=== PATIENT | male | born 1970 | race Caucasian/White ===

== ENCOUNTER → 2017-02-12 | Outpatient (CLI) | payer MEDICAID ==
[~2017-02-12] MED LIST: AMOX-362 PO; CEFU500T50 PO; FLU60VIA21 IM ONLY; GUAI-545 PO; HYDR-4225 PO; HYDR-4309 PO; HYDR100C9 PO; HYDR25CA83 PO; IBUP-1671 PO; IBUP600T22 PO; LEVE-14 PO; LEVE100034 PO; LEVE100047 PO; LEVO-85 PO; LEVO500T83 PO; LORA-1456 PO; MOMR ENA; PNEI IJ; PROP10TA58 PO; PROP20TA56 PO; TAMS0.4C25 PO; VERA120T72 PO; VERA180C10 PO; VERA240T12 PO; VERA360C6 PO
== END ==
LOC: LAB 08:41
PROVIDERS: ATTEND Internal Medicine Hematology & Oncology
DX: E83.119 Hemochromatosis, unspecified (principal)
CPT/HCPCS: 36415; 82040; 82247; 82310; 82374; 82435; 82565; 82728; 82947; 83550; 84075; 84132; 84155; 84295; 84450; 84460; 84520; 85027; 99195

== ENCOUNTER → 2017-02-18 | Outpatient (CLI) | payer MEDICAID | LOC: LAB 08:52 | PROVIDERS: ATTEND Internal Medicine Hematology & Oncology | DX: E83.119 Hemochromatosis, unspecified (principal) | CPT/HCPCS: 36415; 82040; 82247; 82310; 82374; 82435; 82565; 82728; 82947; 83550; 84075; 84132; 84155; 84295; 84450; 84460; 84520; 85027 ==

== ENCOUNTER → 2017-02-27 | Outpatient (CLI) | payer MEDICAID | LOC: LAB 08:01 | PROVIDERS: ATTEND Internal Medicine Hematology | DX: E83.119 Hemochromatosis, unspecified (principal) | CPT/HCPCS: 36415; 82040; 82247; 82310; 82374; 82435; 82565; 82728; 82947; 83550; 84075; 84132; 84155; 84295; 84450; 84460; 84520; 85027; 99195 ==

== ENCOUNTER → 2017-03-06 | Outpatient (CLI) | payer MEDICAID | LOC: LAB 07:54 | PROVIDERS: ATTEND Internal Medicine Hematology & Oncology | DX: E83.119 Hemochromatosis, unspecified (principal) | CPT/HCPCS: 36415; 82040; 82247; 82310; 82374; 82435; 82565; 82728; 82947; 83550; 84075; 84132; 84155; 84295; 84450; 84460; 84520; 85027 ==

== ENCOUNTER → 2017-03-11 | Outpatient (CLI) | payer MEDICAID | LOC: LAB 08:23 | PROVIDERS: ATTEND Internal Medicine Hematology & Oncology | DX: E83.119 Hemochromatosis, unspecified (principal) | CPT/HCPCS: 99195 ==

== ENCOUNTER → 2017-03-25 | Outpatient (CLI) | payer MEDICAID ==
[~2017-03-25] MED LIST changes: +FLU30SYR8 IM ONLY
== END ==
LOC: LAB 08:00
PROVIDERS: ATTEND Internal Medicine Hematology
DX: E83.119 Hemochromatosis, unspecified (principal)
CPT/HCPCS: 36415; 82040; 82247; 82310; 82374; 82435; 82565; 82728; 82947; 83540; 83550; 84075; 84132; 84155; 84295; 84450; 84460; 84520; 85027; 99195

== ENCOUNTER → 2017-03-26 | Outpatient (CLI) | payer MEDICAID ==
--- NOTE | 2017-03-26 09:39 | RADIOLOGY IMAGING REPORT ---
FACILITY: [facility] - [place] PATIENT NAME: Wilber Carrasco : 1970 MR: [id number] V: [id number] EXAM DATE: ORDERING PHYSICIAN: RACHELE WALLACE TECHNOLOGIST: [place] [facility] [place] Patient: Wilber Carrasco : 1970 Visit/Account:[id number] Date of Sevice: 03/26/2017 EXAMINATION: Limited right upper quadrant ultrasound 03/26/2017 4:23 AM HISTORY: Chronic liver disease. COMPARISON STUDIES: Renal ultrasound 06/15/2015, ultrasound of the liver to 416 FINDINGS: Gallbladder: no stones or sludge. Liver: Borderline prominent at 17 cm. Increased echogenicity with diminished penetration. No focal mass. No marisela cirrhotic features. Common duct: 3 mm Pancreas: Visualized portions are normal. Tail was not well seen due to bowel gas. Right kidney: negative Upper abdominal aorta and IVC: negative Ascites: none IMPRESSION: 1. Echogenic liver which can be seen with simple fatty infiltration although also more profound hepa tocellular disease. No clear cirrhotic features. 2. Otherwise unremarkable study apart from poor visualization of the pancreatic tail. Report Dictated By: Pérez Edouard MD at 03/26/2017 9:31 AM Report E-Signed By: Pérez Edouard MD at 03/26/2017 9:34 AM WSN:LANCE
== END ==
LOC: US 00:56
PROVIDERS: ATTEND Emergency Medicine
DX: K76.0 Fatty (change of) liver, not elsewhere classified (principal)
CPT/HCPCS: 76705

== ENCOUNTER → 2017-04-02 | Outpatient (CLI) | payer MEDICAID | LOC: LAB 08:03 | PROVIDERS: ATTEND Internal Medicine Hematology | DX: E83.110 Hereditary hemochromatosis (principal) | CPT/HCPCS: 36415; 82040; 82247; 82310; 82374; 82435; 82565; 82728; 82947; 83540; 83550; 84075; 84132; 84155; 84295; 84450; 84460; 84520; 85027; 99195 ==

== ENCOUNTER → 2017-05-28 | Outpatient (CLI) | payer MEDICAID ==
[~2017-05-28] MED LIST changes: +LOR1 PO
[2017-05-28 09:28] LABS: INR 1.13
== END ==
LOC: CT 01:08
PROVIDERS: ATTEND Emergency Medicine
DX: Z01.818 Encounter for other preprocedural examination (principal); E83.110 Hereditary hemochromatosis
CPT/HCPCS: 36415; 85610; 85730

== ENCOUNTER 2017-06-24 08:07 | Outpatient (RCR) | payer MEDICAID ==
[2017-04-04 09:45] VITALS: BP 117/80
--- NOTE | 2017-04-04 18:20 | ONCOLOGY FOLLOW UP NOTE ---
EVENT DATE: April 04, 2017 DIAGNOSES 1. Hereditary hemochromatosis with double heterozygous state for C282Y mutation and H63D mutation. 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 4. Possible liver cirrhosis. 5. Left upper extremity tremors. CHIEF COMPLAINT The patient is here today for followup of his hereditary hemochromatosis. HEMATOLOGY HISTORY The patient is a 47-year-old male who underwent neurology evaluation by Dr. Ann, and he was diagnosed with Call-Wray Syndrome with tremors of the left upper extremity and weakness of the left lower extremity, and non- epileptic seizures. He saw also an regional tanker truck driver for problem with the right eye, and he lost nearly 98% of vision in the right eye, as per patient. The patient was found to have iron overload, and he had genetic testing for hemochromatosis, which revealed double heterozygous state for C282Y and H63D mutations. The patient had started phlebotomy sessions every week. His iron studies on March 16, 2015 revealed ferritin of 811, serum iron 282, TIBC 304, iron saturation 92.8%. He has also evidence of liver cirrhosis, and his serum protein electrophoresis was normal. His thrombocytopenia is attributed to his liver cirrhosis, and his current platelet count on March 10, 2015 was 98,000. HISTORY OF PRESENT ILLNESS Patient is here today for followup of his hereditary hemochromatosis. He is doing fine currently. He has generalized joint aches. His tremor of the left upper extremity is getting better with dose modification of his medication after he was followed by his neurologist. Other than that he is really doing very well. CURRENT MEDICATIONS 1. Hydroxyzine 25 mg at bedtime. 2. Propranolol 10 mg b.i.d. 3. Levetiracetam 1000 mg daily. 4. Verapamil 360 mg daily. 5. Mucinex D one tablet q.12h. 6. Nasonex 17 gm spray, 1-2 sprays each nostril p.r.n. ALLERGIES No known drug allergies. PAST MEDICAL HISTORY 1. Call-Wray syndrome. 2. Left upper extremity tremors. 3. Possible liver cirrhosis. 4. Blindness, right eye. PAST SURGICAL HISTORY Hernia repair as . FAMILY HISTORY The patient has strong family history of Parkinsonism and strokes. His father had history of skin cancer, prostate cancer and colon cancer. SOCIAL HISTORY The patient is single with no children. He is unemployed, not on disability. He quit smoking in 1996 and quit alcohol in 1998. Denies any abuse of illicit drugs. REVIEW OF SYSTEMS CONSTITUTIONAL: No appetite or weight change. No fever, chills or sweating. No recent infection. HEENT: Ears: No tinnitus or hearing problem. Nose: The patient has occasional nasal bleed. Throat: No sore throat or mouth ulcers. Eyes: No diplopia or visual changes. RESPIRATORY: He has shortness of breath. CARDIOVASCULAR: No chest pain, orthopnea, or paroxysmal nocturnal dyspnea (PND) . No edema. No palpitations. GASTROINTESTINAL: No nausea or vomiting. No diarrhea. He has constipation. No change in bowel movements. No heartburn or swallowing difficulties. No abdominal pain. No jaundice. No hematemesis, melena or rectal bleeding. GENITOURINARY: No hematuria or dysuria. MUSCULOSKELETAL: Patient has generalized joint pains. NEUROLOGICAL: His tremors of the left upper extremity are getting better with dose modification of his treatment. HEMATOLOGIC/LYMPHATIC: He is weak, tired, and fatigued. SKIN: No skin rash or lumps. PSYCHIATRIC: No anxiety or depression PHYSICAL EXAMINATION GENERAL: Looks stable. Well-developed, well-nourished, and in no acute distress. VITAL SIGNS: Blood pressure 117/80, pulse 66 per minute, respirations 16 per minute, temperature 98. Pulse ox 90% on room air. HEENT: Head: Atraumatic. No sinus tenderness to palpation. Eyes: No icterus or conjunctivitis. Mouth and throat: No oral thrush or mucositis. NECK: Supple. No cervical or supraclavicular lymphadenopathy. LUNGS: Clear to auscultation and percussion bilaterally. HEART: Regular rate and rhythm. No gallops, murmurs, clicks or rubs. ABDOMEN: Soft and lax. No tenderness. No hepatosplenomegaly. No masses. EXTREMITIES: No cyanosis, clubbing or edema. LYMPHATICS: No peripheral lymphadenopathy. NEUROLOGICAL: The patient has tremors of the left upper extremity which look slower, less violent than before. PSYCHIATRIC: Mood and affect appear normal. SKIN: No skin rash, bruise or purpuric eruption. DIAGNOSTIC DATA CBC showed a white count of 5.9, hemoglobin 15.6, hematocrit 43.8, platelets 100 ,000. Chem panel totally normal, except AST 111, ALT 142. Serum iron 163, TIBC 312, iron saturation 52.2% and ferritin 295. ASSESSMENT 1. Hereditary hemochromatosis with double heterozygous state for C282Y mutation and H63D mutation. The patient has had multiple phlebotomies in the past. Current ferritin is 295 and saturation 52.2%, and the patient has phlebotomy every other week. I am planning to proceed with phlebotomy weekly for five times, and I will see him in six weeks from now with CBC, iron studies with ferritin. My target for phlebotomy is to keep ferritin less than 100 and iron saturation less than 60%. 2. Call-Wray syndrome. Patient is followed by neurologist, with improvement of the tremors of the left upper extremity with his current dose modification. 3. Right eye blindness. 4. Possible liver cirrhosis. CT-guided biopsy of the liver could not be done because of the tremors. 5. Left upper extremity tremors, most probably due to his neurologic disorder. He is getting better with increasing the dose of his medication directed by his neurologist. PLAN 1. Phlebotomize 500 mL of blood every week as long as hematocrit is more than 30%. 2. Patient to return in six weeks with CBC, iron studies with ferritin and chem panel. 3. Patient is to contact us for any new concerns or complaints. [facility]
[2017-04-08 09:01] VITALS: BP 130/80
[2017-04-15 08:34] VITALS: BP 118/83
[2017-04-15 09:07] VITALS: BP 124/81
[2017-04-22 08:37] VITALS: BP 149/113
[2017-05-01 09:40] VITALS: BP 165/133
[2017-05-01 10:13] VITALS: BP 120/71
[2017-05-06 08:53] VITALS: BP 107/66
[2017-05-06 09:11] VITALS: BP 83/74
[2017-05-06 09:26] VITALS: BP 99/60
[2017-05-15 08:43] VITALS: BP 144/86
[2017-05-15 08:51] LABS: PLATELET COUNT, AUTOMATED 98 K/uL (150-450)
[2017-05-17 08:47] VITALS: BP 101/73
--- NOTE | 2017-05-17 16:15 | ONCOLOGY FOLLOW UP NOTE ---
EVENT DATE: May 17, 2017 DIAGNOSES 1. Hereditary hemochromatosis with double heterozygous state for C282Y mutation and H63D mutation. 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 4. Possible liver cirrhosis. 5. Left upper extremity tremors. CHIEF COMPLAINT The patient is here today for followup of his hereditary hemochromatosis. HEMATOLOGY HISTORY The patient is a 47-year-old male who underwent neurology evaluation by Dr. Ann, and he was diagnosed with Call-Wray Syndrome with tremors of the left upper extremity and weakness of the left lower extremity, and non- epileptic seizures. He saw also an bow maker custom for problem with the right eye, and he lost nearly 98% of vision in the right eye, as per patient. The patient was found to have iron overload, and he had genetic testing for hemochromatosis, which revealed double heterozygous state for C282Y and H63D mutations. The patient had started phlebotomy sessions every week. His iron studies on March 16, 2015 revealed ferritin of 811, serum iron 282, TIBC 304, iron saturation 92.8%. He has also evidence of liver cirrhosis, and his serum protein electrophoresis was normal. His thrombocytopenia is attributed to his liver cirrhosis, and his current platelet count on March 10, 2015 was 98,000. HISTORY OF PRESENT ILLNESS Patient is here today for followup of his hereditary hemochromatosis. He is doing fine currently. He has some dry cough occasionally. He has achy pain all over his joints. His tremors in the left upper extremity are getting better. CURRENT MEDICATIONS 1. Hydroxyzine 25 mg at bedtime. 2. Propranolol 10 mg b.i.d. 3. Levetiracetam 1000 mg daily. 4. Verapamil 360 mg daily. 5. Mucinex D one tablet q.12h. 6. Nasonex 17 gm spray, 1-2 sprays each nostril p.r.n. ALLERGIES No known drug allergies. PAST MEDICAL HISTORY 1. Call-Wray syndrome. 2. Left upper extremity tremors. 3. Possible liver cirrhosis. 4. Blindness, right eye. PAST SURGICAL HISTORY Hernia repair as infant. FAMILY HISTORY The patient has strong family history of Parkinsonism and strokes. His father had history of skin cancer, prostate cancer and colon cancer. SOCIAL HISTORY The patient is single with no children. He is unemployed, not on disability. He quit smoking in 1996 and quit alcohol in 1998. Denies any abuse of illicit drugs. REVIEW OF SYSTEMS CONSTITUTIONAL: No appetite or weight change. No fever, chills or sweating. No recent infection. HEENT: Ears: No tinnitus or hearing problem. Nose: The patient has occasional nasal bleed. Throat: No sore throat or mouth ulcers. Eyes: No diplopia or visual changes. RESPIRATORY: He has dry cough. CARDIOVASCULAR: No chest pain, orthopnea, or paroxysmal nocturnal dyspnea (PND) . No edema. No palpitations. GASTROINTESTINAL: No nausea or vomiting. No diarrhea. He has constipation. No change in bowel movements. No heartburn or swallowing difficulties. No abdominal pain. No jaundice. No hematemesis, melena or rectal bleeding. GENITOURINARY: No hematuria or dysuria. MUSCULOSKELETAL: He has achiness in his joints. NEUROLOGICAL: His tremors in the left upper extremity are getting better lately. HEMATOLOGIC/LYMPHATIC: He is weak, tired, and fatigued. SKIN: No skin rash or lumps. PSYCHIATRIC: No anxiety or depression PHYSICAL EXAMINATION GENERAL: Looks stable. Well-developed, well-nourished, and in no acute distress. VITAL SIGNS: Blood pressure 101/73, pulse 57 per minute, respirations 18 per minute, temperature 98.6. Pulse ox 90% on room air. HEENT: Head: Atraumatic. No sinus tenderness to palpation. Eyes: No icterus or conjunctivitis. Mouth and throat: No oral thrush or mucositis. NECK: Supple. No cervical or supraclavicular lymphadenopathy. LUNGS: Clear to auscultation and percussion bilaterally. HEART: Regular rate and rhythm. No gallops, murmurs, clicks or rubs. ABDOMEN: Soft and lax. No tenderness. No hepatosplenomegaly. No masses. EXTREMITIES: No cyanosis, clubbing or edema. LYMPHATICS: No peripheral lymphadenopathy. NEUROLOGICAL: Tremors of the left upper extremity are noted and they are better than before with his current treatment. PSYCHIATRIC: Mood and affect appear normal. SKIN: No skin rash, bruise or purpuric eruption. DIAGNOSTIC DATA CBC showed a white count of 5.6, hemoglobin 14.3, hematocrit 40.2, platelets 98, 000. Iron studies showed serum iron 88, TIBC 339, iron saturation 26% and ferritin 90. ASSESSMENT 1. Hereditary hemochromatosis with double heterozygous state for C282Y mutation and H63D mutation. Patient had multiple phlebotomies in the past. His current ferritin is 90, down from 295, and iron saturation is 26%, down from 52.2%. I am planning to start his maintenance phlebotomy. I will see him in three months from now with CBC, iron studies with ferritin and chem panel, and I will repeat his CBC and iron studies in six weeks. My target for phlebotomy if ferritin is above 100 and/or iron saturation more than 60% as long as his hematocrit is above 30%. 2. Call-Wray syndrome. Patient is followed by neurologist, with improvement of the tremors in the left upper extremity with his current modification. 3. Right eye blindness. 4. Possible liver cirrhosis. CT-guided biopsy of the liver could not be done in the past because of his tremors. 5. Left upper extremity tremors, most probably due to his neurologic disorder. They are getting better lately. PLAN 1. Phlebotomize 500 mL of blood as long as his hematocrit is above 30% and his ferritin above 100 and/or iron saturation more than 60%. 2. CBC, iron studies with ferritin to be checked every six weeks. 3. Patient to return in three months with CBC, chem panel, iron studies with ferritin. 4. Patient is to contact us for any new concerns or complaints. [facility]
[2017-06-24 08:20] LABS: PLATELET COUNT, AUTOMATED 95 K/uL (150-450)
[2017-06-24 08:22] VITALS: BP 107/60
[2017-06-24 10:31] VITALS: BP 129/101
[2017-06-28] MEDS ORDERED: HYDR-4225 PO (11:08)
== END 2017-07-02 ==
LOC: SPU 08:07
PROVIDERS: ATTEND Internal Medicine Hematology
DX: E83.110 Hereditary hemochromatosis (principal); I67.841 Reversible cerebrovascular vasoconstriction syndrome; R25.1 Tremor, unspecified; H54.61 Unqualified visual loss, right eye, normal vision left eye; R53.1 Weakness; R53.83 Other fatigue; R06.02 Shortness of breath; K59.00 Constipation, unspecified; Z79.899 Other long term (current) drug therapy
CPT/HCPCS: 82728; 83540; 83550; 85014; 85025; 85027; 99195; G0463; 99212

== ENCOUNTER → 2017-09-19 | Outpatient (CLI) | payer MEDICARE, MEDICAID | LOC: LAB 08:57 | PROVIDERS: ATTEND Emergency Medicine | DX: E78.5 Hyperlipidemia, unspecified (principal); R74.8 Abnormal levels of other serum enzymes | CPT/HCPCS: 36415; 82465; 83718; 84478 ==

== ENCOUNTER 2017-11-11 08:10 | Outpatient (RCR) | payer MEDICARE, MEDICAID ==
[2017-08-19 09:09] LABS: PLATELET COUNT, AUTOMATED 86 K/uL (150-450)
[2017-08-19 10:20] VITALS: BP 115/74
[2017-08-22 08:17] VITALS: BP 120/77
--- NOTE | 2017-08-22 09:57 | Oncology Progress Note ---
History of Present Illness Evaluation Evaluation Date: Aug 22, 2017 Evaluation Time: 08:41 Accompanied by Accompanied by: self Last seen by : Bentley 05/23/17 Chief Complaint Chief Complaint F/u management of Hereditary hemochromatosis. Oncology History Oncology History HEMATOLOGY HISTORY Patient is a 47-year-old male who underwent neurology evaluation by Dr. Ann, and he was diagnosed with Call-Wray Syndrome with tremors of the left upper extremity and weakness of the left lower extremity, and non-epileptic seizures. - He saw also an fermentation manager for problem with the right eye, and he lost nearly 98% of vision in the right eye, as per patient. - The patient was found to have iron overload, and he had genetic testing for hemochromatosis, which revealed double heterozygous state for C282Y and H63D mutations. - The patient had started phlebotomy sessions every week. His iron studies on March 16, 2015 revealed ferritin of 811, serum iron 282, TIBC 304, iron saturation 92.8%. - He has also evidence of liver cirrhosis, and his serum protein electrophoresis was normal. His thrombocytopenia is attributed to his liver cirrhosis, and his current platelet count on March 10, 2015 was 98,000. Treatment Treatment Therapeutic Phlebotomy Q2-4 weeks. - Phlebotomize 500 mL of blood for a hematocrit above 30% ; ferritin above 50- 100 and/or iron saturation more than 60% HPI HPI Mr. Danilo Merino is a legally blind obese 47-year-old male who has Hereditary Hemochromatosis with double heterozygous state for C282Y mutation, and H63D mutation Dx; 02/2015. The patient had started phlebotomy sessions every week. His iron studies on March 16, 2015 revealed ferritin of 811, serum iron 282, TIBC 304, iron saturation 92.8%. He has also evidence of liver cirrhosis, and his serum protein electrophoresis was normal. Significant PMH of liver cirrhosis attributed thrombocytopenia (plt 98K in 02/20150 ,Call-Wray Syndrome with tremors of the left upper extremity and weakness of the left lower extremity, coupled with non-epileptic seizures. Patient presents to the cancer center today by himself for follow-up on his disease management . Platelet count today is 96; hemoglobin 16.1; hematocrit 45.7; total iron saturation percentage is 101.5; ferritin 202; Iron 269; TIBC 265; CMP within normal limits. except AST 80; ALT 105. Patient reports being in his usual state of health. He denies any nausea vomiting, diarrhea, shortness of breath, cardiac type chest pain , no fevers, or sore throat, no night sweats. Besides weakness, fatigue, unsteady gait and tremors on his bilateral lower extremities and upper extremities for which he wears a brace and the lower extremities.He reports no changes in appetite, no changes in bowel or bladder pattern. Living Conditions Lives by himself, has home health aid, help assistance, 4 times per Day. Diagnostic Studies Result Diagram: 08/19/1748 08/19/17 0848 PMH Patient History: FH: cancer FATHER (Skin cancer), Age:74 FH: cerebral aneurysm MOTHER (aneurysm), FH: diabetes mellitus MOTHER (aneurysm), sister FH: heart attack FH: hypertension FATHER (Skin cancer), Age:74 MOTHER (aneurysm), sister FH: stroke FATHER (Skin cancer), Age:74 Social/Occupational History Social History: Social History This is a 47 Yr old White male, he is S Single and has [] Children Hx Smoking: Yes (SMOKED 5 YRS <1 PPD) Smoking Status: Former Smoker Exposure to Second Hand Smoke?: Yes Allergies & Medications Allergies: Coded Allergies: coconut oil (Verified Allergy, Severe, AIRWAY OBSTRUCTION, 08/22/15) tomato (Verified Allergy, Severe, AIRWAY OBSTRUCTION, 08/22/15) Home Meds Active Scripts Propranolol Hcl (PROPRANOLOL HCL) 20 Mg Tablet, 1 TAB PO BID, #180 TAB 3 Refills Prov:RACHELE WALLACE MD 07/25/17 Hydroxyzine Hcl (HYDROXYZINE HCL) 25 Mg Tablet, 25 MG PO BID, #180 TAB 3 Refills Prov:RACHELE WALLACE MD 06/28/17 Levetiracetam (LEVETIRACETAM) 1,000 Mg Tablet, 1.5 TAB PO BID, #90 TAB 0 Refills Prov:RACHELE WALLACE MD 05/03/17 Verapamil HCl (Verapamil Sr) 180 Mg Cap24h.pel, 1 TAB PO BID, #60 TAB 11 Refills Prov:RACHELE WALLACE MD 02/12/17 Tamsulosin Hcl (FLOMAX) 0.4 Mg Cap.er.24h, 1 CAP PO BID, #180 CAP 4 Refills Prov:RACHELE WALLACE MD 08/26/15 Reported Medications Ibuprofen (MOTRIN IB) 200 Mg Tablet, 4 TAB PO BID 11/10/15 Discontinued Scripts Lorazepam (LORAZEPAM) 1 Mg Tab, 1 TAB PO ONCE, #1 TAB Take half hour prior to iver biopsy Prov:RACHELE WALLACE MD 05/21/17 Review of Systems Constitution: Denies Appetite/Weight Change, Denies Fever/Chills/Sweating, Denies Recent Infection, Denies Other HEENT: No EARS: Tinnitus, No NOSE: Nasal Discharge, No THROAT: Sore Throat, No EYES: Dipolpia, No EARS: Hearing Problems, No NOSE: Epistaxis, No THROAT: Mouth Ulcers, No EYES: Vision Change, No OTHER Respiratory: No Cough, No Expectoration, No Hemoptysis, No Shortness of Breath , No OTHER Cardiovascular: No Chest Pain, No Orthopnea, No Edema, No Palpitations, No OTHER Gastrointestinal: No Nausea, No Vomitting, No Diarrehea, No Constipation, No Heart Burn, No Swallowing Difficulties, No Abdominal Pain, No Other Gentiourinary: No Hematuria, No Dysuria, No Nocturia, No Other Musculoskeletal: Muscle Pain, Joint Pain Hematological: Weakness, Fatigue Skin: No Skin Rash, No Lumps, No Erythema, No Dry Skin, No Moist Skin, No Other Psychiatric: No Anxiety, No Depression, No Other Vital Signs Vital Signs Temperature: 97.0 Pulse: 62 BP Systolic: 120 BP Diastolic: 77 Respiratory Rate: 18 O2 SAT: 92 O2 Delivery: Room Air Height (feet) 6 Height (inches) 76.00 Weight lb: 345 Weight oz: 2.0 Weight Kg (Rasta): 156.55 Pain: 0 ECOG-2 Capable of all self-care but unable to carry out any work activities. Up and about >50% of waking hours Physical Exam General: Looks Stable, Other (Morbidly Obese) HEENT: HEAD:Atraumatic Neck: Supple, No Cervical Lymphadenopathy, No Subclavicular Lymphadopathy, No Thyromegaly, No Other Lungs: Clear to Auscultation Heart: Regular Rate and Rhythm Abdomen: Soft and Nontender, Other (Grossly rounded) Extremities: No Cyanosis, No Clubbing, No Edema, No Other Lymphatics: No Peripheral Lymphadenopathy, No Other Psychiatric: Mood appears normal, Affect appears normal Skin: No Skin Rashes, No Bruising, No Purpura, No Moist Desquamation, No Dry Desquamation, No Errythema, Mild Errythema, No Moderate Errythema, No Severe Errythema, No Induration, No Other Breast: No No Masses, No No Nipple Discharge, No No Skin Changes, No Other Assessment and Plan Assessment and Plan Mr. Danilo Merino is a obese 47-year-old male who has Hereditary Hemochromatosis with double heterozygous state for C282Y mutation, and H63D mutation Dx; 2015. The patient had started phlebotomy sessions every week. His iron studies on March 16, 2015 revealed ferritin of 811, serum iron 282, TIBC 304, iron saturation 92.8%. He has also evidence of liver cirrhosis, and his serum protein electrophoresis was normal. Significant PMH of liver cirrhosis attributed thrombocytopenia (plt 98K in 02/20150 ,Call-Wray Syndrome with tremors of the left upper extremity and weakness of the left lower extremity, coupled with non-epileptic seizures. 1. Hereditary hemochromatosis with double heterozygous state for C282Y mutation and H63D mutation. Patient had multiple phlebotomies in the past. His current ferritin is 202. s/p Phlebotomy 08/19/2017, down from 295, and iron saturation is 101.5%, we will increase his maintenance phlebotomy to every 10 days. We will see him08/28/2017 from now with CBC, iron studies with ferritin and chem panel, and will repeat his CBC and iron studies every 10 days, until he normalizes to a targeted levels. Target for phlebotomy if ferritin is above 50- 100 and/or iron saturation more than 60% ;hematocrit is above 30%. 2. Call-Wray syndrome. Patient is followed by neurologist, with improvement of the tremors in the left upper extremity with his current modification. 3. Right eye blindness. has home health aid four times per week, and he is able to maintain his function capacityy with no problems. 4. Possible liver cirrhosis. AST 80; ALT [address]-guided biopsy of the liver could not be done in the past because of his tremors. 5. Left upper and lower extremity tremors, most probably due to his neurologic disorder. They are getting better lately. patient uses bilateral foot braces to help with balance, and foot drop. 6. Obesity. recommend healthy low carb high protein and fruit diet, as well as to continue physical exercise. 7. Thrombocytopenia. Atriv=buted to liver cirrhosis, platelt count today 86K, no bruising, no active bleeding. PLAN #1 Patient to return to clinic for CBC, CMP iron studies ferritin on 08/28/2017 for labs and therapeutic phlebotomy as clinically indicated #2 Patient to have labs CBC, iron studies with ferritin every 10 days and therapeutic phlebotomy. until targeted levels. #3.Phlebotomize 500 mL of blood Q2-4 weeks. for a hematocrit above 30% ; ferritin above 50-100 and/or iron saturation more than 60%. 4.Patient is to contact us for any new concerns or complaints. #5. will continue to re-evaluate frequency of labs and phlebotomy -Education, patient instructed Patient to go to ER immediately and or call Clinic if any SOB, fevers, chills, cardiac type chest pain, bleeding, excessive bruising, headaches, blurry vision, pain unrelieved by medication, TIME SPENT: 30 minutes 25> minutes includes but not limited to discussion, counselling and co-ordination~ of care. Discussion with other health care providers, record review, review of lab work, diagnostic tests. Plan discussed extensively with patient. All the questions answered today. Thank you for the opportunity to be involved in the care of Mr. Danilo Merino. Billing Level: Return visit SERGO GARZON, ONC Aug 22, 2017 08:42
[2017-08-28 08:23] VITALS: BP 118/69
[2017-08-28 08:24] LABS: PLATELET COUNT, AUTOMATED 102 K/uL (150-450)
[2017-08-28 10:38] VITALS: BP 125/90
[2017-09-09 09:53] VITALS: BP 112/79
[2017-09-09 09:54] LABS: PLATELET COUNT, AUTOMATED 88 K/uL (150-450)
[2017-09-09 11:41] VITALS: BP 116/84
[2017-09-18 08:31] VITALS: BP 106/61
[2017-09-18 08:57] LABS: PLATELET COUNT, AUTOMATED 83 K/uL (150-450)
[2017-09-18 10:46] VITALS: BP 118/77
[2017-09-30 08:30] VITALS: BP 164/93
[2017-09-30 08:30] LABS: PLATELET COUNT, AUTOMATED 97 K/uL (150-450)
[2017-09-30 09:45] VITALS: BP 116/88
[2017-10-10 08:07] VITALS: BP 139/71
[2017-10-10 08:25] LABS: PLATELET COUNT, AUTOMATED 88 K/uL (150-450)
[2017-10-10 10:11] VITALS: BP 121/80
[2017-10-22 08:12] VITALS: BP 128/85
[2017-10-22 08:27] LABS: PLATELET COUNT, AUTOMATED 84 K/uL (150-450)
[2017-10-22 09:34] VITALS: BP 132/74
[2017-11-01 08:41] LABS: PLATELET COUNT, AUTOMATED 80 K/uL (150-450)
[2017-11-01 08:43] VITALS: BP 139/95
[2017-11-11 08:14] VITALS: BP 123/76
[2017-11-11 08:27] LABS: PLATELET COUNT, AUTOMATED 83 K/uL (150-450)
== END 2017-11-14 ==
LOC: SPU 08:10
PROVIDERS: ATTEND Internal Medicine Hematology
DX: E83.119 Hemochromatosis, unspecified (principal); H54.8 Legal blindness, as defined in USA; E66.9 Obesity, unspecified
CPT/HCPCS: 36415; 82728; 83540; 83550; 85025; 99195; G0463; 82040; 82247; 82310; 82374; 82435; 82565; 82947; 84075; 84132; 84155; 84295; 84450; 84460; 84520; 99212

== ENCOUNTER 2018-02-17 08:00 | Outpatient (RCR) | payer MEDICARE, MEDICAID ==
[2017-11-21 08:13] VITALS: BP 125/82
[2017-11-21 08:27] LABS: PLATELET COUNT, AUTOMATED 89 K/uL (150-450)
[2017-11-21 09:31] VITALS: BP 114/66
[2017-12-02 08:20] VITALS: BP 114/72
[2017-12-02 08:25] LABS: PLATELET COUNT, AUTOMATED 89 K/uL (150-450)
[2017-12-12 08:24] VITALS: BP 112/66
[2017-12-12 08:44] LABS: PLATELET COUNT, AUTOMATED 82 K/uL (150-450)
[2017-12-23 08:05] VITALS: BP 118/87
[2017-12-23 08:59] VITALS: BP 68/53
[2018-01-01 08:14] VITALS: BP 92/82
[2018-01-01 08:33] LABS: PLATELET COUNT, AUTOMATED 81 K/uL (150-450)
[2018-01-13 08:05] VITALS: BP 135/82
[2018-01-13 08:29] LABS: PLATELET COUNT, AUTOMATED 75 K/uL (150-450)
[2018-01-13 09:32] VITALS: BP 96/64
[2018-01-23 08:22] VITALS: BP 126/68
[2018-01-23 08:37] LABS: PLATELET COUNT, AUTOMATED 75 K/uL (150-450)
[2018-01-23 09:45] VITALS: BP 117/69
[2018-01-31 08:04] VITALS: BP 140/84
[2018-01-31 08:17] LABS: PLATELET COUNT, AUTOMATED 76 K/uL (150-450)
[2018-01-31 09:33] VITALS: BP 111/73
[~2018-02-17 08:00] MED LIST changes: -HYDR-4309 PO; +HYDR-653 PO
[2018-02-17 08:10] VITALS: BP 132/69
[2018-02-17 08:30] LABS: PLATELET COUNT, AUTOMATED 79 K/uL (150-450)
[2018-02-17 09:14] VITALS: BP 113/72
== END 2018-02-18 ==
LOC: SPU 08:00
PROVIDERS: ATTEND Internal Medicine Hematology
DX: E83.110 Hereditary hemochromatosis (principal)
CPT/HCPCS: 82040; 82247; 82310; 82374; 82435; 82565; 82728; 82947; 83540; 83550; 84075; 84132; 84155; 84295; 84450; 84460; 84520; 85025; 85027; 99195

== ENCOUNTER → 2018-03-24 | Outpatient (CLI) | payer MEDICARE, MEDICAID ==
[~2018-03-24] MED LIST changes: +CHOL100052 PO; +ROSU10TA5 PO; +TRIA15OI20 TP
== END ==
LOC: LAB 09:04
PROVIDERS: ATTEND Emergency Medicine
DX: K74.60 Unspecified cirrhosis of liver (principal); R63.5 Abnormal weight gain
CPT/HCPCS: 36415; 82040; 82247; 82248; 82306; 82465; 83718; 84075; 84153; 84155; 84443; 84450; 84460; 84478

== ENCOUNTER 2018-05-19 08:21 | Outpatient (RCR) | payer MEDICARE, MEDICAID ==
[2018-02-27 08:15] VITALS: BP 119/65
[2018-02-27 08:29] LABS: PLATELET COUNT, AUTOMATED 68 K/uL (150-450)
[2018-03-10 08:03] VITALS: BP 116/105
[2018-03-10 08:16] LABS: PLATELET COUNT, AUTOMATED 69 K/uL (150-450)
[2018-03-10 10:07] VITALS: BP 123/108
[2018-03-20 08:17] VITALS: BP 129/70
[2018-03-20 08:34] LABS: PLATELET COUNT, AUTOMATED 69 K/uL (150-450)
[2018-03-20 09:46] VITALS: BP 116/78
[2018-03-31 08:16] VITALS: BP 132/85
[2018-03-31 08:25] LABS: PLATELET COUNT, AUTOMATED 58 K/uL (150-450)
[2018-03-31 09:45] VITALS: BP 106/82
[2018-04-04 08:32] VITALS: BP 124/77
--- NOTE | 2018-04-04 10:21 | [facility] ONCOLOGY NOTE ---
EVENT DATE: April 04, 2018 DIAGNOSES 1. Hereditary hemochromatosis with double heterozygous state for C282Y mutation and H63D mutation. 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 4. Possible liver cirrhosis. 5. Left upper extremity tremors. CHIEF COMPLAINT The patient is here today for followup of his hereditary hemochromatosis. HEMATOLOGY HISTORY The patient is a 48-year-old male who underwent neurology evaluation by Dr. Ann, and he was diagnosed with Call-Wray Syndrome with tremors of the left upper extremity and weakness of the left lower extremity, and non-epileptic seizures. He saw also an software support technician for problem with the right eye, and he lost nearly 98% of vision in the right eye, as per patient. The patient was found to have iron overload, and he had genetic testing for hemochromatosis, which revealed double heterozygous state for C282Y and H63D mutations. The patient had started phlebotomy sessions every week. His iron studies on March 16, 2015 revealed ferritin of 811, serum iron 282, TIBC 304, iron saturation 92.8%. He has also evidence of liver cirrhosis, and his serum protein electrophoresis was normal. His thrombocytopenia is attributed to his liver cirrhosis, and his current platelet count on March 10, 2015 was 98,000. HISTORY OF PRESENT ILLNESS Patient is here today for followup of his hereditary hemochromatosis. He is doing fine currently except for pain in his ankles and knees and tremors of his left upper extremity, which is getting better. CURRENT MEDICATIONS 1. Hydroxyzine 25 mg at bedtime. 2. Propranolol 10 mg b.i.d. 3. Levetiracetam 1000 mg daily. 4. Verapamil 360 mg daily. 5. Mucinex D one tablet q.12h. 6. Nasonex 17 gm spray, 1-2 sprays each nostril p.r.n. ALLERGIES No known drug allergies. PAST MEDICAL HISTORY 1. Call-Wray syndrome. 2. Left upper extremity tremors. 3. Possible liver cirrhosis. 4. Blindness, right eye. PAST SURGICAL HISTORY Hernia repair as . FAMILY HISTORY The patient has strong family history of Parkinsonism and strokes. His father had history of skin cancer, prostate cancer and colon cancer. SOCIAL HISTORY The patient is single with no children. He is unemployed, not on disability. He quit smoking in 1996 and quit alcohol in 1998. Denies any abuse of illicit drugs. REVIEW OF SYSTEMS CONSTITUTIONAL: No appetite or weight change. No fever, chills or sweating. No recent infection. HEENT: Ears: No tinnitus or hearing problem. Nose: The patient has occasional nasal bleed. Throat: No sore throat or mouth ulcers. Eyes: No diplopia or visual changes. RESPIRATORY: He has dry cough. CARDIOVASCULAR: No chest pain, orthopnea, or paroxysmal nocturnal dyspnea (PND). No edema. No palpitations. GASTROINTESTINAL: No nausea or vomiting. No diarrhea. He has constipation. No change in bowel movements. No heartburn or swallowing difficulties. No abdominal pain. No jaundice. No hematemesis, melena or rectal bleeding. GENITOURINARY: No hematuria or dysuria. MUSCULOSKELETAL: Patient has pain in the ankles and knees. NEUROLOGICAL: He has tremors of the left upper extremity. HEMATOLOGIC/LYMPHATIC: He is weak, tired, and fatigued. SKIN: No skin rash or lumps. PSYCHIATRIC: No anxiety or depression PHYSICAL EXAMINATION GENERAL: Looks stable. Well-developed, well-nourished, and in no acute distress. VITAL SIGNS: Blood pressure 124/77, pulse 63 per minute, respirations 18 per minute, temperature 96.9, pulse ox 93% on room air. HEENT: Head: Atraumatic. No sinus tenderness to palpation. Eyes: No icterus or conjunctivitis. Mouth and throat: No oral thrush or mucositis. NECK: Supple. No cervical or supraclavicular lymphadenopathy. LUNGS: Clear to auscultation and percussion bilaterally. HEART: Regular rate and rhythm. No gallops, murmurs, clicks or rubs. ABDOMEN: Soft and lax. No tenderness. No hepatosplenomegaly. No masses. EXTREMITIES: No cyanosis, clubbing or edema. LYMPHATICS: No peripheral lymphadenopathy. NEUROLOGICAL: Patient has tremors of the left upper extremity, which are getting better with his current treatment by neurologist. PSYCHIATRIC: Mood and affect appear normal. SKIN: No skin rash, bruise or purpuric eruption. DIAGNOSTIC DATA CBC showed a white count of 5.7, hemoglobin 15.3, hematocrit 44.8, platelets 58,000. Chem panel is normal except blood sugar 124, AST 93, ALT 74. Serum iron is 216, TIBC 320, iron saturation 67.5% and ferritin 185. ASSESSMENT 1. Hereditary hemochromatosis with double heterozygous state for C282Y mutation and H63D mutation. Patient had multiple phlebotomies in the past. His current ferritin is 185 and iron saturation 67.5%. I am planning check his blood count every two weeks with CBC and iron studies and phlebotomize 500 mL of blood if the ferritin is above 100 and/or iron saturation more than 60%. I will see the patient again in four months with CBC, chem panel and iron studies with ferritin. 2. Call-Wray syndrome with tremors of the left upper extremity. Patient is followed by neurologist. 3. Right eye blindness. 4. Possible liver cirrhosis. CT-guided biopsy of the liver could not be done because of his tremors but he has fluctuation of his liver enzymes, especially transaminases. PLAN 1. Continue followup. 2. Patient to return in four months with CBC, chem panel and iron studies with ferritin. 3. CBC, iron studies with ferritin to be checked every two weeks. 4. Phlebotomize 500 mL of blood if ferritin above 100 and/or iron saturation more than 60%. 5. Patient is to contact us for any new concerns or complaints. [facility]
[2018-04-10 08:17] VITALS: BP 98/79
[2018-04-10 08:21] LABS: PLATELET COUNT, AUTOMATED 59 K/uL (150-450)
[2018-04-10 10:07] VITALS: BP 121/74
[2018-04-21 08:30] VITALS: BP 120/77
[2018-04-21 08:44] LABS: PLATELET COUNT, AUTOMATED 57 K/uL (150-450)
[2018-04-21 10:13] VITALS: BP 121/78
[2018-05-06 08:17] VITALS: BP 116/85
[2018-05-06 08:53] LABS: PLATELET COUNT, AUTOMATED 50 K/uL (150-450)
[2018-05-06 10:08] VITALS: BP 112/102
[~2018-05-19 08:21] MED LIST changes: +FURO20TA19 PO; -VERA240T12 PO; +VERA240T95 PO
[2018-05-19 08:28] VITALS: BP 139/73
[2018-05-19 08:47] LABS: PLATELET COUNT, AUTOMATED 56 K/uL (150-450)
== END 2018-05-27 ==
LOC: SPU 08:21
PROVIDERS: ATTEND Internal Medicine Hematology
DX: E83.110 Hereditary hemochromatosis (principal); I67.841 Reversible cerebrovascular vasoconstriction syndrome; H54.40 Blindness, one eye, unspecified eye; K74.60 Unspecified cirrhosis of liver; R53.1 Weakness; R53.83 Other fatigue; R05 Cough; Z79.899 Other long term (current) drug therapy; Z87.891 Personal history of nicotine dependence
CPT/HCPCS: 82728; 83540; 83550; 85025; 99195; G0463; 82040; 82247; 82310; 82374; 82435; 82565; 82947; 84075; 84132; 84155; 84295; 84450; 84460; 84520; 99212

== ENCOUNTER → 2018-06-09 | Outpatient (CLI) | payer MEDICARE, MEDICAID | LOC: LAB 09:24 | PROVIDERS: ATTEND Emergency Medicine | DX: Z12.5 Encounter for screening for malignant neoplasm of prostate (principal); Z79.899 Other long term (current) drug therapy; E55.9 Vitamin D deficiency, unspecified; D75.89 Other specified diseases of blood and blood-forming organs | CPT/HCPCS: 36415; 82306; G0103; 82310; 82374; 82435; 82565; 82947; 84132; 84153; 84295; 84520 ==

== ENCOUNTER → 2018-06-23 | Outpatient (CLI) | payer MEDICARE, MEDICAID ==
[2018-06-23 09:02] LABS: LDL CHOLESTEROL 68 mg/dl
== END ==
LOC: LAB 08:24
PROVIDERS: ATTEND Emergency Medicine
DX: E55.9 Vitamin D deficiency, unspecified (principal); R60.0 Localized edema; E78.5 Hyperlipidemia, unspecified
CPT/HCPCS: 36415; 82306; 82310; 82374; 82435; 82465; 82565; 82947; 83718; 84132; 84295; 84478; 84520

== ENCOUNTER 2018-06-27 00:36 | Day surgery (SDC) | payer MEDICARE, MEDICAID ==
[~2018-06-27] VITALS: Ht 198.1 cm; Wt 185.5 kg
[2018-06-27 09:25] VITALS: BP 120/87
[2018-06-27] MEDS ORDERED: BACITRACIN OINT 15 GM TUBE TP ONE (09:43)
[2018-06-27] MEDS ORDERED: LIDO/EPI 1% MDV 1:100,000 20ML INFIL ONE (09:43)
[2018-06-27] MEDS ORDERED: NORMOSOL R SOLN(*) 1000 ML BAG 1,000 ML IV PRN (09:50)
[2018-06-27] MEDS ORDERED: LIDOCAINE/SOD BICARB 8.4% SYR ID ONE (09:50)
[2018-06-27 11:22] VITALS: BP 119/63
--- NOTE | 2018-06-27 11:34 | Short(Outpt) Discharge Summary ---
Discharge Summary Reason for Hosp/Final Diag: (1) Skin lesion Hospital Course & Plan: pt presented for colonoscopy and skin lesion removal. he tolerated the procedure well. path pending. he will be discharged home when criteria met. (2) Encounter for screening colonoscopy Departure Discharge to: Home Discharge Instructions Home Meds Active Scripts Furosemide (LASIX) 20 Mg Tablet, 1 TAB PO 3XW for edema, #36 TAB 3 Refills Prov:RACHELE WALLACE MD 06/24/18 Hydroxyzine Hcl (HYDROXYZINE HCL) 25 Mg Tablet, 25 MG PO BID, #180 TAB 3 Refills Prov:RACHELE WALLACE MD 06/24/18 Triamcinolone Acetonide 0.1% Oint 15 Gm Tube (TRIAMCINOLONE ACETONIDE 0.1% 15 GM TUBE) 15 Gm Oint...g., 15 GM TP BID, #1 TUBE 3 Refills Prov:RACHELE WALLACE MD 05/01/18 Rosuvastatin Calcium (Rosuvastatin Calcium) 10 Mg Tablet, 1 TAB PO DAILY, #90 TAB 3 Refills Prov:RACHELE WALLACE MD 04/21/18 Verapamil HCl (Verapamil Sr) 180 Mg Cap24h.pel, 1 TAB PO BID, #180 TAB 3 Refills Prov:RACHELE WALLACE MD 02/10/18 Propranolol Hcl (PROPRANOLOL HCL) 20 Mg Tablet, 1 TAB PO BID, #180 TAB 3 Refills Prov:RACHELE WALLACE MD 07/25/17 Tamsulosin Hcl (FLOMAX) 0.4 Mg Cap.er.24h, 1 CAP PO BID, #180 CAP 4 Refills Prov:RACHELE WALLACE MD 08/26/15 Reported Medications Cholecalciferol (Vitamin D3) (VITAMIN D) 1,000 Unit Tablet, 1000 UNIT PO DAILY 03/26/18 Ibuprofen (MOTRIN IB) 200 Mg Tablet, 4 TAB PO BID 11/10/15 Diet: Regular Activity: As Tolerated Special Instructions: ok to remove bandage and shower in 2 days. f/u dr[facility] 10 days for stitch removal ([phone]). repeat colonoscopy in 10 yrs. HANY BOOTHE June 27, 2018 11:34
[2018-06-27 12:03] VITALS: BP 108/98
[2018-06-27 12:08] VITALS: BP 115/63
--- NOTE | 2018-06-27 12:21 | OPERATIVE REPORT 1 ---
EVENT DATE: June 27, 2018 SURGEON: Kishore Viramontes MD ANESTHESIOLOGIST: [*] ANESTHESIA: MAC and local. JAVA CORE DEVELOPER: None. PREOPERATIVE DIAGNOSES 1. Lesion on right yarsani. 2. Screening colonoscopy. POSTOPERATIVE DIAGNOSES 1. Lesion on right yarsani. 2. Screening colonoscopy. PROCEDURES PERFORMED 1. Excision of 2 cm lesion from right yarsani. 2. Screening colonoscopy documented in [facility]. FLUIDS IV crystalloid. ESTIMATED BLOOD LOSS Minimal. SPECIMENS Right yarsani lesion. COMPLICATIONS None. INDICATIONS This is a 48-year old male with a lesion on his right yarsani that is bothersome to him. He would like to have it removed. Risks and benefits of procedure were explained and consent was signed. DESCRIPTION OF PROCEDURE Patient taken to the GI suite and placed in the supine position. MAC anesthesia was administered per the Anesthesia team. Patient was placed in the left lateral position. He was prepped and draped in normal sterile fashion. Local analgesia was injected into the dermis. An elliptical incision was made around the 2 cm lesion on the right yarsani. It was removed down to the level of the subcutaneous tissue and one small area down to the level of the fascia but not into the fascia. Flaps were created. Hemostasis was achieved with 3-0 Vicryl stitches and electrocautery. Deep dermal 3-0 Vicryl stitches were used to approximate the wound and interrupted 4-0 Prolene stitches were used to close the skin. Appropriate dressings were applied. The patient tolerated the procedure well. There were no complications. Colonoscopy was documented in [facility]. MTDD
== END 2018-06-27 12:30 | disposition home or self-care (01) ==
LOC: OR 00:36
PROVIDERS: ATTEND Surgery
DX: Z12.11 Encounter for screening for malignant neoplasm of colon (principal); L82.1 Other seborrheic keratosis
CPT/HCPCS: 00812; 11423; 88305; A9270; G0121

== ENCOUNTER 2018-08-25 08:13 | Outpatient (RCR) | payer MEDICARE, MEDICAID ==
[2018-06-02 08:31] VITALS: BP 117/68
[2018-06-02 08:41] LABS: PLATELET COUNT, AUTOMATED 38 K/uL (150-450)
[2018-06-02 10:20] VITALS: BP 95/66
[2018-06-13 08:28] LABS: PLATELET COUNT, AUTOMATED 75 K/uL (150-450)
[2018-06-13 10:08] VITALS: BP 108/61
[2018-06-30 08:27] VITALS: BP 121/68
[2018-06-30 08:52] LABS: PLATELET COUNT, AUTOMATED 56 K/uL (150-450)
[2018-06-30 10:00] VITALS: BP 114/74
[2018-07-14 08:28] VITALS: BP 124/66
[2018-07-14 09:06] LABS: PLATELET COUNT, AUTOMATED 46 K/uL (150-450)
[2018-07-14 10:29] VITALS: BP 122/88
[2018-07-30 08:21] LABS: PLATELET COUNT, AUTOMATED 43 K/uL (150-450)
[2018-07-30 08:27] VITALS: BP 106/63
[2018-07-30 10:34] VITALS: BP 112/80
[2018-08-01 08:11] VITALS: BP 125/69
--- NOTE | 2018-08-01 13:35 | [facility] ONCOLOGY NOTE ---
EVENT DATE: August 01, 2018 DIAGNOSES 1. Hereditary hemochromatosis with double heterozygous state for C282Y mutation and H63D mutation. 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 4. Possible liver cirrhosis. 5. Left upper extremity tremors. CHIEF COMPLAINT The patient is here today for followup of his hereditary hemochromatosis. HEMATOLOGY HISTORY The patient is a 48-year-old male who underwent neurology evaluation by Dr. Ann, and he was diagnosed with Call-Wray Syndrome with tremors of the left upper extremity and weakness of the left lower extremity, and non-epileptic seizures. He saw also an guard driver for problem with the right eye, and he lost nearly 98% of vision in the right eye, as per patient. The patient was found to have iron overload, and he had genetic testing for hemochromatosis, which revealed double heterozygous state for C282Y and H63D mutations. The patient had started phlebotomy sessions every week. His iron studies on March 16, 2015 revealed ferritin of 811, serum iron 282, TIBC 304, iron saturation 92.8%. He has also evidence of liver cirrhosis, and his serum protein electrophoresis was normal. His thrombocytopenia is attributed to his liver cirrhosis, and his current platelet count on March 10, 2015 was 98,000. HISTORY OF PRESENT ILLNESS Patient is here today for followup of his hereditary hemochromatosis. He is doing fine currently. He continues to have tremors of his left upper extremity but it is much better after he started treatment with propranolol. CURRENT MEDICATIONS 1. Hydroxyzine 25 mg at bedtime. 2. Propranolol 10 mg b.i.d. 3. Levetiracetam 1000 mg daily. 4. Verapamil 360 mg daily. 5. Mucinex D one tablet q.12h. 6. Nasonex 17 gm spray, 1-2 sprays each nostril p.r.n. ALLERGIES No known drug allergies. PAST MEDICAL HISTORY 1. Call-Wray syndrome. 2. Left upper extremity tremors. 3. Possible liver cirrhosis. 4. Blindness, right eye. PAST SURGICAL HISTORY Hernia repair as infant. FAMILY HISTORY The patient has strong family history of Parkinsonism and strokes. His father had history of skin cancer, prostate cancer and colon cancer. SOCIAL HISTORY The patient is single with no children. He is unemployed, not on disability. He quit smoking in 1996 and quit alcohol in 1998. Denies any abuse of illicit drugs. REVIEW OF SYSTEMS CONSTITUTIONAL: No appetite or weight change. No fever, chills or sweating. No recent infection. HEENT: Ears: No tinnitus or hearing problem. Nose: The patient has occasional nasal bleed. Throat: No sore throat or mouth ulcers. Eyes: No diplopia or visual changes. RESPIRATORY: He has dry cough. CARDIOVASCULAR: No chest pain, orthopnea, or paroxysmal nocturnal dyspnea (PND). No edema. No palpitations. GASTROINTESTINAL: No nausea or vomiting. No diarrhea. He has constipation. No change in bowel movements. No heartburn or swallowing difficulties. No abdominal pain. No jaundice. No hematemesis, melena or rectal bleeding. GENITOURINARY: No hematuria or dysuria. MUSCULOSKELETAL: Patient has pain in the ankles and knees. NEUROLOGICAL: Patient has tremors of the left upper extremity, which is much better after he started treatment with propranolol. HEMATOLOGIC/LYMPHATIC: He is weak, tired, and fatigued. SKIN: No skin rash or lumps. PSYCHIATRIC: No anxiety or depression PHYSICAL EXAMINATION GENERAL: Looks stable. Well-developed, well-nourished, and in no acute distress. VITAL SIGNS: Blood pressure 125/69, pulse 56 per minute, respirations 18 per minute, temperature 97.3, pulse ox 90% on room air. HEENT: Head: Atraumatic. No sinus tenderness to palpation. Eyes: No icterus or conjunctivitis. Mouth and throat: No oral thrush or mucositis. NECK: Supple. No cervical or supraclavicular lymphadenopathy. LUNGS: Clear to auscultation and percussion bilaterally. HEART: Regular rate and rhythm. No gallops, murmurs, clicks or rubs. ABDOMEN: Soft and lax. No tenderness. No hepatosplenomegaly. No masses. EXTREMITIES: No cyanosis, clubbing or edema. LYMPHATICS: No peripheral lymphadenopathy. NEUROLOGICAL: Patient has tremors of the left upper extremity, which are better after treatment with propranolol. PSYCHIATRIC: Mood and affect appear normal. SKIN: No skin rash, bruise or purpuric eruption. DIAGNOSTIC DATA CBC showed a white count of 4.7, hemoglobin 14.6, hematocrit 43, platelets 43,000. Chem panel is totally normal except carbon dioxide 20, blood sugar 171, AST 88, ALT 78, alkaline phosphatase 133. Serum iron is 273, TIBC 331, iron saturation 82.5% and ferritin 132. ASSESSMENT 1. Hereditary hemochromatosis with double heterozygous state for C282Y mutation and H63D mutation. Patient had multiple phlebotomies in the past and currently he has phlebotomy every other week. His current ferritin is 132, which is down from 185 but his iron saturation currently is 82.5%. I am planning to proceed with phlebotomy every two weeks after CBC and iron studies to be done and we will be proceed as long as his ferritin above 50 and/or iron saturation above 60%. I am planning to see him again in two months from now with CBC, chem panel, iron studies with ferritin. 2. Thrombocytopenia is stable. His current platelet count is 43,000. 3. Possible liver cirrhosis. CT-guided biopsy of the liver could not be done because of the tremors and patient has fluctuation of his liver enzymes, especially transaminases. 4. Call-Adrián syndrome with tremors of the left upper extremity. Patient is followed by a neurologist and his tremors are much better after starting treatment with propranolol. 5. Right eye blindness. PLAN 1. Continue followup. 2. CBC, iron studies with ferritin to be checked every without weeks. 3. Proceed with phlebotomy as long as his ferritin is above 50 and/or iron saturation above 60%. 4. Patient to return in two months with CBC, chem panel, iron studies with ferritin. 5. Patient to contact us for any new concerns or complaints. [facility]
[2018-08-11 08:25] VITALS: BP 115/69
[2018-08-11 09:23] LABS: PLATELET COUNT, AUTOMATED 34 K/uL (150-450)
[2018-08-25 08:26] VITALS: BP 114/69
[2018-08-25 09:13] LABS: PLATELET COUNT, AUTOMATED 36 K/uL (150-450)
== END 2018-08-28 ==
LOC: SPU 08:13
PROVIDERS: ATTEND Internal Medicine Hematology
DX: E83.110 Hereditary hemochromatosis (principal); I67.841 Reversible cerebrovascular vasoconstriction syndrome; H54.7 Unspecified visual loss; R53.1 Weakness; R53.83 Other fatigue
CPT/HCPCS: 82728; 83540; 83550; 85025; 99195; G0463; 82040; 82247; 82310; 82374; 82435; 82565; 82947; 84075; 84132; 84155; 84295; 84450; 84460; 84520; 99212